=== PATIENT | female | born 1975 | race Caucasian/White ===

== ENCOUNTER 2017-08-16 17:09 | Emergency (ER) | payer OTHER ==
[~2017-08-16] VITALS: Ht 157.5 cm; Wt 87.5 kg
[2017-08-16 17:21] VITALS: BP 178/107
[2017-08-16] MEDS ORDERED: FLEXERIL PO (17:41)
[2017-08-16] MEDS ORDERED: NORCO 5-325 TA1 EACH PO (17:41)
[2017-08-16] MEDS ORDERED: TORADOL 10 MG T10 MG PO (17:41)
== END 2017-08-16 18:01 | disposition home or self-care (01) ==
LOC: M.ERS 17:09
DX: S39.012A Strain of muscle, fascia and tendon of lower back, initial encounter (principal); X58.XXXA Exposure to other specified factors, initial encounter; Y93.89 Activity, other specified; Y92.89 Other specified places as the place of occurrence of the external cause; Y99.8 Other external cause status

== ENCOUNTER 2017-11-01 13:45 | Emergency (ER) | payer OTHER ==
[~2017-11-01] VITALS: Ht 157.5 cm; Wt 86.2 kg
[~2017-11-01 13:45] MED LIST: FLEXERIL PO; NORCO 5-325 TA1 EACH PO; TORADOL 10 MG T10 MG PO
[2017-11-01 13:55] VITALS: BP 163/98
[2017-11-01] MEDS ORDERED: TORADOL 10 MG T10 MG PO (14:19)
[2017-11-01] MEDS ORDERED: ULTRAM 50MG TAB50 MG PO (14:19)
[2017-11-01] MEDS ORDERED: FLEXERIL PO (14:19)
== END 2017-11-01 14:28 | disposition home or self-care (01) ==
LOC: M.ERS 13:45
DX: S39.012A Strain of muscle, fascia and tendon of lower back, initial encounter (principal); X50.1XXA Overexertion from prolonged static or awkward postures, initial encounter; Y93.89 Activity, other specified; Y92.89 Other specified places as the place of occurrence of the external cause; Y99.8 Other external cause status